=== PATIENT | female | born 1970 | race Caucasian/White ===

== ENCOUNTER 2018-03-01 16:43 | Emergency (ER) | payer SELFPAY ==
[2018-03-01 17:28] LABS: #Lymphocytes 1.9 thou/uL (1.20-3.40); #Monocytes 0.3 thou/uL (0.11-0.59); #Neutrophils 3.2 thou/uL (1.40-6.50); %Basophils 0.4 % (0.0-1.0); %Eosinophils 0.4 % (0.0-10.0); %Lymphocytes 35.2 % (21.0-51.0); %Monocytes 5.8 % (0.0-10.0); %Neutrophils 58.2 % (42.0-75.0); Hemoglobin 14.4 g/dL (12.0-16.0); Mean Corpuscular HGB CONC 34.7 g/dL (32.0-36.0); Mean Corpuscular Hemoglobin 32.7 pg (27.0-31.0); Mean Corpuscular Volume 94.4 fL (78.0-98.0); Mean Platelet Volume 7.7 fL (7.4-10.4); Platelet Count 296 thou/uL (130-400); RBC Distribution Width 11.7 % (11.5-14.5); Red Blood Cell (RBC) Count 4.39 mill/uL (4.20-5.40); White Blood Cell (WBC) Count 5.5 thou/uL (4.8-10.8)
[2018-03-01] MEDS ORDERED: Nitroglycerin 2% Ointment 1 INCH/1 GM Packet ONE (17:41)
[2018-03-01] MEDS ORDERED: Mag-Al 1200 mg/1200 mg/30 ML UDCUP ONE (17:45)
[2018-03-01] MEDS ORDERED: Lidocaine Viscous Sol 2% 15 ml UD Cup ONE (17:45)
[2018-03-01 17:52] LABS: CKMB 2.5 ng/mL (0-6.6); Troponin I Less than 0.010 ng/mL (< 0.028)
[2018-03-01 17:57] LABS: ALT (SGPT) 44 U/L (8-55); AST (SGOT) 41 U/L (5-34); Albumin 4.3 g/dL (3.5-5.0); Alkaline Phosphatase 145 U/L (40-150); Anion Gap 14 mmol/L (10-20); BUN (Urea Nitrogen) 13 mg/dL (7.0-18.7); Bilirubin, Total 0.6 mg/dL (0.2-1.2); CK (CPK) 97 U/L (29-168); Calc. Creatinine Clearance 0 mL/min (70-130); Calcium 9.4 mg/dL (7.8-10.44); Carbon Dioxide 20 mmol/L (22-29); Chloride 110 mmol/L (98-107); Estimated GFR-MDRD 78; Globulin 2.7 g/dL (2.4-3.5); Glucose 200 mg/dL (70-105); Lipase 73 U/L (8-78); Potassium 4.5 mmol/L (3.5-5.1); Sodium 139 mmol/L (136-145)
--- NOTE | 2018-03-01 18:31 | RAD ---
CHEST ONE VIEW: 03/01/18 HISTORY: Chest pain. FINDINGS: No comparison. The cardiac silhouette and pulmonary vasculature are unremarkable. Mediastinum is midline. No lobar c onsolidation or evidence of pneumothorax. IMPRESSION: No active cardiopulmonary abnormalities are demonstrated. POS: [facility]
[2018-03-01] MEDS ORDERED: Cyclobenzaprine 10 MG TAB ONE (19:44)
[2018-03-01 20:26] LABS: Troponin I Less than 0.010 ng/mL (< 0.028)
[2018-03-01] MEDS ORDERED: Ketorolac Tromethamine 30 MG/ML VIAL ONE (20:57)
== END 2018-03-01 21:08 | disposition home or self-care (01) ==
LOC: ERS 16:43
DX: R07.9 Chest pain, unspecified (principal)
CPT/HCPCS: 36415; 71045; 80053; 82553; 83690; 84484; 85025; 85379; 93005; 96374; J1885

== ENCOUNTER 2021-12-26 06:19 | Emergency (ER) | payer SELFPAY ==
[2021-12-26] MEDS ORDERED: Diazepam 5 MG TAB ONE (07:01)
[2021-12-26] MEDS ORDERED: Morphine 10 MG/ML VIAL ONE (07:01)
== END 2021-12-26 08:40 | disposition home or self-care (01) ==
LOC: EEVIPCON 06:19 → ERS 06:19
DX: M25.551 Pain in right hip (principal)
CPT/HCPCS: 96372; 99283; J2270

== ENCOUNTER 2022-01-12 06:13 | Emergency (ER) | payer SELFPAY ==
[2022-01-12] MEDS ORDERED: Morphine 4 MG/ML VIAL ONE ×2 (06:40→09:41)
[2022-01-12 07:39] LABS: #Lymphocytes 1.9 thou/uL (1.20-3.40); #Monocytes 0.8 thou/uL (0.11-0.59); #Neutrophils 4.7 thou/uL (1.40-6.50); %Basophils 0.6 % (0.0-1.0); %Eosinophils 0.5 % (0.0-10.0); %Lymphocytes 24.9 % (21.0-51.0); %Monocytes 10.4 % (0.0-10.0); %Neutrophils 63.7 % (42.0-75.0); Hemoglobin 12.9 g/dL (12.0-16.0); Mean Corpuscular Volume 97.1 fL (78.0-98.0); Mean Platelet Volume 8.1 fL (7.4-10.4); Platelet Count 316 thou/uL (130-400); RBC Distribution Width 11.9 % (11.5-14.5); Red Blood Cell (RBC) Count 3.91 mill/uL (4.20-5.40); White Blood Cell (WBC) Count 7.4 thou/uL (4.8-10.8)
[2022-01-12] MEDS ORDERED: Ketorolac Tromethamine 30 MG/ML VIAL ONE (09:41)
== END 2022-01-12 12:12 | disposition home or self-care (01) ==
LOC: ERS 06:13
DX: M87.9 Osteonecrosis, unspecified (principal)
CPT/HCPCS: 72170; 85025; 85652; 86140; 96372; J1885; J2270

== ENCOUNTER 2025-05-24 02:09 | Emergency (ER) | payer SELFPAY ==
[2025-05-24] MEDS ORDERED: Ondansetron PF 4 MG/2 ML Vial ONE (02:41)
[2025-05-24] MEDS ORDERED: Acetaminophen 500 MG TAB ONE (02:41)
[2025-05-24 02:45] LABS: #Basophils Less than 0.03 10x3/uL (0.0-0.2); #Eosinophils 0.12 10x3/uL (0.0-0.7); #Monocytes 0.91 10x3/uL (0.11-0.59); #Neutrophils 3.70 10x3/uL (1.40-6.50); %Basophils 0.2 % (0.0-1.0); %Eosinophils 1.9 % (0.0-10.0); %Lymphocytes 26.5 % (21.0-51.0); %Monocytes 14.1 % (0.0-10.0); %Neutrophils 57.1 % (42.0-75.0); Hematocrit 29.0 % (36.0-47.0); Hemoglobin 9.3 g/dL (12.0-16.0); Mean Corpuscular Hemoglobin 32.9 pg (27.0-31.0); Mean Corpuscular Volume 102.5 fL (78.0-98.0); Platelet Count 412 10x3/uL (130-400); Red Blood Cell (RBC) Count 2.83 mill/uL (4.20-5.40); White Blood Cell (WBC) Count 6.46 10x3/uL (4.8-10.8)
[2025-05-24 04:04] LABS: ALT (SGPT) 57 U/L (Less than 34); AST (SGOT) 202 U/L (11-34); Albumin 3.1 g/dL (3.1-4.5); Alkaline Phosphatase 460 U/L (40-110); Anion Gap 20 mmol/L (10-20); BUN (Urea Nitrogen) 15 mg/dL (9.8-20.1); Bilirubin, Total 0.5 mg/dL (0.3-1.2); Calc. Creatinine Clearance 0 mL/min (70-130); Calcium 8.6 mg/dL (7.8-10.44); Carbon Dioxide 14 mmol/L (22-29); Chloride 108 mmol/L (98-107); Globulin 3.4 g/dL (2.4-3.5); Glucose 82 mg/dL (70-105); Potassium 3.9 mmol/L (3.5-5.1); Sodium 138 mmol/L (136-145)
== END 2025-05-24 03:35 | disposition home or self-care (01) ==
LOC: ERS 02:09
DX: G89.18 Other acute postprocedural pain (principal); M25.551 Pain in right hip; R79.82 Elevated C-reactive protein (CRP); Z75.3 Unavailability and inaccessibility of health-care facilities
CPT/HCPCS: 80053; 85025; 86141; 96374; 96375; J2270; J2405